=== PATIENT | male | born 1945 | race American Indian/Alaskan Native ===

== ENCOUNTER 2017-02-09 07:08 | Day surgery (SDC) | payer MEDICARE, OTHER ==
[2017-02-09] MEDS ORDERED: NACL 0.9% 500 ML 500 ML IV SCH (08:00)
[2017-02-09 08:25] LABS: Basophils % (Auto) 0.8 % (0.0-1.8); Eosinophils % (Auto) 1.8 % (0.0-4.3); Hematocrit 37.7 % (35.5-45.6); Hemoglobin 12.7 gm/dl (11.8-15.2); Mean Corpuscular HGB Conc 34 % (32-34); Mean Corpuscular Hemoglobin 30 pg (28-32); Mean Corpuscular Volume 88 fl (84-94); Platelet Count 279 K/mm3 (140-440); Red Blood Count 4.28 M/mm3 (3.65-5.03); White Blood Count 8.3 K/mm3 (4.5-11.0)
[2017-02-09 08:39] LABS: INR 1.06 (0.87-1.13)
[2017-02-09 09:11] LABS: BUN/Creatinine Ratio 18.12; Calcium 9.4 mg/dL (8.4-10.2); Chloride 100.8 mmol/L (98-107); Potassium 4.3 mmol/L (3.6-5.0)
[2017-02-09] MEDS ORDERED: HEPARIN 10,000 UNITS/10 ML ONE (12:30)
[2017-02-09] MEDS ORDERED: HEPARIN/NS 5000 UNIT/500ML(CATH LAB) 1,000 ML IR ONE (12:30)
[2017-02-09] MEDS ORDERED: XYLOCAINE 2% INFILTRATI ONE (12:31)
[2017-02-09] MEDS ORDERED: NITROGLYCERIN SYRINGE 3 ML ONE (12:31)
[2017-02-09] MEDS ORDERED: CALAN ONE (12:31)
[2017-02-09] MEDS ORDERED: SUBLIMAZE ONE (12:32)
[2017-02-09] MEDS ORDERED: VERSED ONE (12:32)
--- NOTE | 2017-02-09 13:30 | Short Stay Summary ---
Short Stay Documentation Date of service: 02/09/17 - History H&P: obtained from office - Allergies and Medications Current Medications: Allergies No Known Allergies Allergy (Unverified 06/29/13 20:46) Home Medications Medication Instructions Recorded Confirmed Last Taken Type Albuterol Sulfate [Ventolin HFA] 2 puff IH Q4H PRN 06/29/13 02/09/17 Unknown History Allopurinol [Zyloprim] 100 mg PO QDAY 06/29/13 02/09/17 02/09/17 History Aspirin [Aspirin TAB] 325 mg PO ONCE 06/29/13 02/09/17 02/09/17 History Losartan/Hydrochlorothiazide 1 each PO QDAY 06/29/13 02/09/17 02/09/17 History [Hyzaar 50-12.5] Simvastatin 40 mg PO QDAY 06/29/13 02/09/17 02/09/17 History amLODIPine [Norvasc] 10 mg PO DAILY 06/29/13 02/09/17 02/09/17 History Gentamicin 0.3% Ophth Soln 2 drops OD Q4H #1 bottle 06/30/13 02/09/17 02/09/17 Rx Albiglutide [Tanzeum] 30 mg AD 2XW 02/09/17 02/09/17 02/07/17 History Ammonium Lactate [Ammonium Lactate] 140 gm AD DAILY 02/09/17 02/09/17 02/08/17 History Hydralazine HCl [Apresoline TAB] 150 mg PO DAILY 02/09/17 02/09/17 02/09/17 History ISOSORBIDE MONOnitrate [Imdur ER] 30 mg PO DAILY 02/09/17 02/09/17 02/09/17 History Latanoprost [Latanoprost] 1 drop OU DAILY 02/09/17 02/09/17 02/09/17 History Lidocaine [Lidocaine OINT] 37.5 gm TRANSDERMA DAILY 02/09/17 02/09/17 02/09/17 History Metolazone [Metolazone] 5 mg PO DAILY 02/09/17 02/09/17 02/09/17 History Torsemide [Torsemide] 20 mg PO DAILY 02/09/17 02/09/17 02/09/17 History Tramadol HCl [traMADol] 50 mg PO DAILY 02/09/17 02/09/17 02/09/17 History Active Medications Sodium Chloride (Nacl 0.9% 500 Ml) 500 mls @ 50 mls/hr IV DIRECT JAH Stop: 02/09/17 17:59 Last Admin: 02/09/17 08:00 Dose: 50 mls/hr - Physical exam General appearance: no acute distress Integumentary: no rash HEENT: Atraumatic Lungs: Clear to auscultation Breasts: deferred Heart: Regular rate Gastrointestinal: normal Male Genitourinary: deferred Female Genitourinary: deferred Rectal Exam: deferred Extremities: no ischemia Neurological: Normal gait - Brief post op/procedure progress note Date of procedure: 02/09/17 Pre-op diagnosis: Abnormal MPI Post-op diagnosis: same Procedure: [facility] Anesthesia: MAC Findings: Non-obstructive CAD Surgeon: VÍCTOR FISHER Estimated blood loss: none Pathology: none Condition: stable - Hospital course Hospital course: Uneventful - Disposition Condition at discharge: Good Disposition: DISCHARGED TO HOME OR SELFCARE Short Stay Discharge Plan Activity: advance as tolerated Weight Bearing Status: Weight Bear as Tolerated Diet: low fat, low cholesterol, low salt, diabetic Follow up with: JAVIER JEAN MD [Primary Care Provider] - 7 Days
[2017-02-09 15:50] VITALS: BP 153/60
--- NOTE | 2017-02-09 16:29 | Cardiac Catherization Report ---
ORDERING PHYSICIAN: Lopez David MD INDICATION FOR PROCEDURE: Abnormal myocardial perfusion scan. PROCEDURES PERFORMED: 1. Selective left and right coronary angiography. 2. Left ventriculogram was not performed due to the patient's underlying renal insufficiency. DESCRIPTION OF PROCEDURE: After obtaining written consent, the patient was draped using sterile technique. A 2% lidocaine was injected into the right wrist. A 5-Uzbek vascular sheath was inserted into the right radial artery. A 5-Uzbek JL3.5 catheter was used to selectively engage the left coronary artery. A 5-Uzbek JR4 catheter was used to selectively engage the right coronary artery. A 5-Uzbek JR4 catheter was used to measure left ventricular end-diastolic pressure and perform and measure the gradient across the left ventricular outflow tract. Left ventriculogram was not performed due to the patient's underlying renal insufficiency. No complications occurred during the procedure. ESTIMATED BLOOD LOSS: Minimal. SPECIMEN REMOVED: None. Hemostasis was achieved at the end of the procedure using manual pressure. SEDATION USED: 0.5 mg of Versed and 25 mcg of fentanyl. FINDINGS: HEMODYNAMICS: Aortic pressure was 120/66, left ventricular systolic pressure is 130 mmHg and the left ventricular end-diastolic pressure was 18 mmHg. There was a 10 mmHg [id number] gradient noted across the left ventricular outflow tract. CARDIAC STRUCTURES: The left ventricle was not injected due to the patient's underlying renal insufficiency. CORONARY ANATOMY: 1. This is a right dominant circulation. 2. The left main is angiographically normal. 3. The LAD has mild diffuse nonobstructive luminal irregularities with 10% luminal obstruction. 4. The left circumflex artery has mild diffuse nonobstructive luminal irregularities with 10% luminal obstruction. 5. The right coronary artery is a dominant vessel. The right coronary artery is a large caliber vessel with no evidence of obstructive disease. There are only mild luminal irregularities. IMPRESSION: 1. Nonobstructive coronary artery disease with mild diffuse nonobstructive luminal irregularities less than or equal to 10% luminal reduction. 2. LVEDP measured at 18 mmHg. 3. A 10 mmHg ibuz-[id number] gradient was noted across left ventricular outflow tract. RECOMMENDATIONS: Follow up with referring physician. Continue current management. JOB# [id number] ZEHRA/SARAN
== END 2017-02-09 16:00 | disposition home or self-care (01) ==
LOC: OPU 07:08
PROVIDERS: ATTEND Internal Medicine
DX: I25.10 Atherosclerotic heart disease of native coronary artery without angina pectoris (principal); J44.9 Chronic obstructive pulmonary disease, unspecified; E11.9 Type 2 diabetes mellitus without complications; E78.5 Hyperlipidemia, unspecified; Z72.89 Other problems related to lifestyle; Z87.891 Personal history of nicotine dependence; Z79.01 Long term (current) use of anticoagulants; Z79.899 Other long term (current) drug therapy
CPT/HCPCS: 36415; 80048; 85025; 85610; 85730; 93005; 93010; 93458; 96360; 96361; C1894; J1644; J2250; J3010; J7040; Q9967

== ENCOUNTER 2017-04-05 17:13 | Outpatient (CLI) | payer MEDICARE, OTHER ==
--- NOTE | 2017-04-06 14:43 | Magnetic Resonance Report ---
MRI BRAIN WITH AND WITHOUT CONTRAST INDICATION: Calpine's disease. COMPARISON: None similar. FINDINGS: Multiplanar and multisequence MRI of the brain performed before and after 20 mL MultiHance intravenously. Symmetric, age-appropriate ventricles and sulci. Mild periventricular and few white matter FLAIR and T2 weighted hyperintensities. No acute infarct, hemorrhage, mass effect or midline shift. No abnormal extra axial fluid collections. Normal major intracranial vascular flow voids. No suspicious abnormal enhancement. Normal posterior fossa with symmetric seventh and eighth nerve complexes. Preserved basilar cisterns. Normal eye globes. Right maxillary sinus mucosal thickening inferiorly. Bilateral ethmoid sinusitis as well. Clear remainder imaged paranasal sinuses and mastoid air cells. Partially empty sella. Normal pituitary stalk enhancement, though slightly deviated towards the left. No gross pituitary mass identified, though exam not performed per pituitary mass protocol. CONCLUSION: No acute intracranial MRI abnormality with age-appropriate atrophy, microvascular changes, mild sinusitis and few other findings, as detailed above. Please correlate. Thank you for the opportunity to participate in this patient's care.
== END 2017-04-05 17:14 | disposition home or self-care (01) ==
LOC: MRI 17:13
PROVIDERS: ATTEND Specialist
DX: E24.0 Pituitary-dependent Cushing's disease (principal); J32.2 Chronic ethmoidal sinusitis; G31.89 Other specified degenerative diseases of nervous system; E11.9 Type 2 diabetes mellitus without complications; I10 Essential (primary) hypertension; E78.00 Pure hypercholesterolemia, unspecified; Z87.891 Personal history of nicotine dependence
CPT/HCPCS: 36415; 70553; 82565; 84520; A9577

== ENCOUNTER 2017-05-03 17:52 | Outpatient (CLI) | payer MEDICARE, OTHER ==
--- NOTE | 2017-05-04 08:32 | Magnetic Resonance Report ---
MRI scan of brain: Compared to 04/05/17. History: [place] syndrome. Technique: Multiplanar multisequence images were obtained without and with contrast injection. Findings: No evidence of restricted diffusion. Ventricles are normal in size and midline in location. No evidence of acute ischemia hemorrhage or mass. Periventricular areas of hyperintensity. No abnormal enhancement following injection of contrast. No extra-axial fluid collection. Normal brainstem and cerebellum. Partially empty sella. Minimal mucosal edema of right maxillary sinus and left maxillary sinus. Impression: No acute intracranial abnormality. Age-appropriate microvascular changes. Mild sinusitis.
== END 2017-05-03 17:53 | disposition home or self-care (01) ==
LOC: MRI 17:52
PROVIDERS: ATTEND Specialist
DX: E24.0 Pituitary-dependent Cushing's disease (principal); J32.0 Chronic maxillary sinusitis; I10 Essential (primary) hypertension; E78.00 Pure hypercholesterolemia, unspecified; Z87.891 Personal history of nicotine dependence
CPT/HCPCS: 36415; 70553; 82565; 84520; A9577

== ENCOUNTER 2017-05-31 17:10 | Outpatient (CLI) | payer MEDICARE, OTHER ==
--- NOTE | 2017-05-31 18:07 | Cat Scan Report ---
FINAL REPORT EXAM: CT ABDOMEN WO CON HISTORY: adrenal adenoma TECHNIQUE: Serial axial images through the abdomen and pelvis with coronal and sagittal reconstruction. PRIORS: None. FINDINGS: There is atelectasis in the lung bases. No pleural effusion is seen. The gallbladder is markedly distended. Hyperdensity is noted in the dependent portion of the gallbladder. There is a hypodense focus in the anterior aspect of the dome of the liver which is too small to definitely characterize. Gallbladder is distended. Pancreas appears normal. Spleen appears normal. No adrenal mass is identified. Kidneys appear normal. Atherosclerotic changes are seen in the aorta. No aneurysmal dilatation is seen. Bladder is decompressed. No free fluid. Appendix appears normal. No gross bowel abnormality is identified. There are degenerative changes in the spine. Hemangioma is seen in the L5 vertebral body. IMPRESSION: 1. No adrenal mass is identified. 2. Marked distention of the gallbladder is noted. Hyperdensity is seen in the dependent portion of the gallbladder. This may represent milk of calcium or small stones. 3. There is a hypodense focus in the dome of the liver which is too small to definitely characterize.
== END 2017-05-31 17:11 | disposition home or self-care (01) ==
LOC: CT 17:10
PROVIDERS: ATTEND Specialist
DX: D35.02 Benign neoplasm of left adrenal gland (principal); I70.0 Atherosclerosis of aorta; J98.11 Atelectasis; K82.8 Other specified diseases of gallbladder; N32.89 Other specified disorders of bladder; D18.09 Hemangioma of other sites; M47.899 Other spondylosis, site unspecified; E24.8 Other Cushing's syndrome; I10 Essential (primary) hypertension; E78.00 Pure hypercholesterolemia, unspecified; Z87.891 Personal history of nicotine dependence
CPT/HCPCS: 74150